=== PATIENT | female | born 1945 | race Caucasian/White ===

== ENCOUNTER 2017-08-25 13:25 | Emergency (ER) | payer OTHER ==
[~2017-08-25] VITALS: Ht 167.6 cm; Wt 77.0 kg
[~2017-08-25 13:25] MED LIST: CLON.1 PO; DONE10TA14; FENO160T2 PO; HYDR200T42 PO; IRON325T2 PO; LAMO100 PO; LEVO50TA51 PO; LORA2TAB PO; MECL25; PIOG30TA4 PO; PRAV20 PO; PRIS100T PO; PROT40TA PO; RIVA1.5
[2017-08-25 13:44] VITALS: BP 169/88; PULSE 78; RESP 18; TEMP 97.9; O2SAT 97
[2017-08-25] MEDS ORDERED: ACETAMINOPHEN/HYDROcodone 325 MG/10 MG TAB PO ONE (14:15)
[2017-08-25] MEDS ORDERED: HYDR200T3 PO (14:16)
[2017-08-25] MEDS ORDERED: MECL-62 PO (14:16)
[2017-08-25] MEDS ORDERED: PRAV20TA2 PO (14:16)
[2017-08-25] MEDS ORDERED: LORA2TAB7 PO (14:16)
[2017-08-25] MEDS ORDERED: HYDR-3583 PO (14:16)
[2017-08-25] MEDS ORDERED: PANT40TA3 PO (14:16)
[2017-08-25] MEDS ORDERED: LAMO5CHW CHEW (14:16)
[2017-08-25] MEDS ORDERED: CLON0.3T PO (14:16)
[2017-08-25] MEDS ORDERED: INSU100V2 SQ (14:16)
[2017-08-25] MEDS ORDERED: HYDR-3799 PO (14:16)
[2017-08-25] MEDS ORDERED: FENO160T PO (14:16)
[2017-08-25] MEDS ORDERED: GABA100C4 PO (14:16)
[2017-08-25] MEDS ORDERED: PIOG15TA5 PO (14:16)
[2017-08-25] MEDS ORDERED: REST0.05 EACH EYE (14:16)
[2017-08-25] MEDS ORDERED: SUCR1TAB PO (14:16)
[2017-08-25] MEDS ORDERED: LEVO75TA3 PO (14:16)
--- NOTE | 2017-08-25 14:20 | PD ---
HPI Chief Complaint: Fall Time Seen by Provider: 13:57 Travel History International Travel<30 days: No Contact w/Intl Traveler<30days: No Traveled to known affect area: No History of Present Illness HPI 72-year-old female presents to the emergency department via EMS for evaluation after she tripped and fell on Sunday, 3 days ago. Patient states she was helping an elderly man in his house when she tripped over a piece of wood falling on her right side. Patient reports that she hit her head is unsure if she had LOC. She reports neck pain, right shoulder pain, right hip pain, low back pain, right ankle pain. Patient denies being on anticoagulants. She takes hydrocodone 10/325 mg for chronic pain. She has not taken this today. Patient states she is able to ambulate with her walker. No abdominal pain. No chest pain. Current pain is 8/10, without radiation, aching. Exacerbating factors movement. No alleviating factors. Moderate severity. Patient has abrasion to the right lateral ankle. She does not believe her tetanus immunization is up-to-date [facility] Past Medical History Asthma: No Anxiety: Yes Depression: No Cardiovascular Problems: Yes High Cholesterol: Yes COPD: Yes Dementia: Yes Diabetes: Yes Patient Takes Glucophage: No Diminished Hearing: No Endocrine: Yes (low thyroid) GERD: Yes Glaucoma: No Hepatitis: No Hiatal Hernia: No Hypertension: Yes Immune Disorder: Yes (SJOGREN'S SYNDROME ) Medical other: Yes (Vertigo) Neurologic: Yes (neuropathy) Psychiatric: Yes (Bipolar) Reproductive: No Respiratory: Yes (COPD) Thyroid Disease: Yes (BIOPSIES ) Triglycerides - High: Yes Influenza Vaccination: Yes ?: Not Menopausal: Yes Past Surgical History Abdominal Surgery: Yes (EXP LAP COLON RESECTION 2003, rock, appy.) Appendectomy: Yes Body Medical Devices: "RIGHT SHOULDER REPLACMENT"? "NOT SURE" , "MAYBE A SCREW IN MY KNEE" Cholecystectomy: Yes Gynecologic Surgery: Yes (HYSTERECTOMY) Hysterectomy: Yes Joint Replacement: Yes (R knee) Pacemaker: No Other Surgery: Yes Social History Alcohol Use: No Tobacco Use: No Substance Use: No Allergies-Medications (Allergen,Severity, Reaction): Coded Allergies: Sulfa (Sulfonamide Antibiotics) (Unverified Allergy, Severe, TONGUE SWELLS , 08/25/17) chlorpromazine (Unverified Allergy, Severe, ?HEART PROBLEM VS DISORIENTED , 08/25/17) morphine (Unverified Allergy, Severe, ONLY ORAL- RASH WITH ORAL MED- STATES CAN TAKE IV, 08/25/17) phenobarbital (Unverified Allergy, Severe, Rash, 08/25/17) venlafaxine (Unverified Allergy, Severe, 08/25/17) duloxetine (Unverified Allergy, Intermediate, UNKNOWN, 08/25/17) blue dye (Unverified Allergy, Unknown, UNKNOWN, 08/25/17) citalopram (Unverified Allergy, Unknown, 08/25/17) lisinopril (Unverified Allergy, Unknown, 08/25/17) niacin (Unverified Allergy, Unknown, 08/25/17) Reported Meds & Prescriptions Reported Meds & Active Scripts Active Reported Humulin R Inj (Insulin Human Regular) 1,000 Unit/10 Ml Vial 10 Units SQ ONCE Hydrocodone-Acetaminophen 10-325 mg Tab 1 Tab PO Q4H PRN Hydroxychloroquine (Hydroxychloroquine Sulfate) 200 Mg Tab 200 Mg PO BID Takw with food Lamotrigine 5 Mg Chew 10 Mg CHEW BID Fenofibrate 160 Mg Tab 160 Mg PO DAILY Gabapentin 100 Mg Cap 100 Mg PO HS Hydralazine HCl 25 Mg Tablet 50 Mg PO TID Pantoprazole (Pantoprazole Sodium) 40 Mg Tab 40 Mg PO DAILY Meclizine (Meclizine HCl) 25 Mg Tab 25 Mg PO DIRECTED PRN Lorazepam 2 Mg Tab 2 Mg PO Q6H PRN Levothyroxine (Levothyroxine Sodium) 75 Mcg Tab 75 Mcg PO DAILY Pioglitazone (Pioglitazone HCl) 15 Mg Tab 15 Mg PO DAILY Sucralfate 1 Gram Tab 1 Gm PO QID on empty stomach Pravastatin 20 Mg Tab 20 Mg PO DAILY Restasis Opth (Cyclosporine Opth) 0.05% Emul 1 Drop EACH EYE BID Clonidine (Clonidine HCl) 0.3 Mg Tab 0.3 Mg PO TID Review of Systems Except as stated in HPI: all other systems reviewed are Neg Physical Exam Narrative GENERAL: Well-nourished, well-developed elderly female patient, afebrile SKIN: Focused skin assessment warm/dry. Patient has abrasion to the right lateral ankle. No lacerations. HEAD: Normocephalic. Atraumatic ENT: Mucosa pink and moist. No erythema or exudates. No uvular edema. No uvular , palatal, or tonsillar deviation. Airway patent. Nasal turbinates appear normal without nasal blood, purulent drainage or septal hematoma. Bilateral tympanic membranes clear without erythema or perforation. EYES: No scleral icterus. No injection or drainage. NECK: Supple, trachea midline. No JVD or lymphadenopathy. CARDIOVASCULAR: Regular rate and rhythm without murmurs, gallops, or rubs. RESPIRATORY: Breath sounds equal bilaterally. No accessory muscle use. Lung sounds are clear to auscultation. GASTROINTESTINAL: Abdomen soft, non-tender, nondistended. MUSCULOSKELETAL: No cyanosis, or edema. Patient has tenderness over right shoulder, right lateral hip, right lateral ankle. BACK: No obvious deformity. No CVA tenderness. Patient has tenderness to palpation or midline cervical and lumbar spine. Data Data Last Documented VS Vital Signs Date Time Temp Pulse Resp B/P (MAP) Pulse Ox O2 Delivery O2 Flow Rate FiO2 08/25/17 15:30 18 08/25/17 13:52 Room Air 08/25/17 13:44 97.9 78 169/88 (115) [address] Brain W/O Iv Contrast(Rout) (08/25/17 ) Ct Cerv Spine W/O Contrast (08/25/17 ) Shoulder, Complete (>2vws) (08/25/17 ) Hip, Uni(Ap&Lat) W Ap Pelvis (08/25/17 ) Spine, Lumbar - Ltd (Ap & Lat) (08/25/17 ) Femur (Ap & Lat/2vws) (08/25/17 ) Ankle, Complete ([id number]) (08/25/17 ) Acetamin-Hydrocod 325-10 Mg ([place] 10-32 (08/25/17 14:15) Tetanus/Diphtheria Tox Adult (Tetanus/Di (08/25/17 14:30) Splint Or Brace Apply/Monitor (08/25/17 17:47) MDM Medical Decision Making Medical Screen Exam Complete: Yes Emergency Medical Condition: Yes Medical Record Reviewed: Yes Interpretation(s) CT brain CONCLUSION: 1. No acute intracranial abnormality identified. CT cervical spine CONCLUSION: 1. No evidence of acute fracture or traumatic listhesis. 2. Degenerative disc disease with spondylosis and facet arthropathy. 3. No evidence of soft tissue injury. x-ray right shoulder CONCLUSION: Chronic change at the acromioclavicular joint and acromion region. An acute bony abnormality is not seen. X-ray right hip with pelvis CONCLUSION: Mild arthropathy; No evidence of acute fracture or dislocation. X-ray right femur CONCLUSION: 1. Status post total right knee arthroplasty. No evidence of acute fracture or loosening. 2. Intact right femur and hip. X-ray right ankle CONCLUSION: 1. Soft tissue swelling is noted along the anterior margin of the ankle with questionable nondisplaced avulsion fracture along the anterior margin of the distal tibia 2. Ankle mortise is well-maintained. X-ray lumbar spine - CONCLUSION: 1. Slight degenerative listhesis at L4-5 secondary to facet arthropathy. 2. Degenerative disc disease and facet arthropathy as described. 3. No acute bony abnormality. Differential Diagnosis Close head injury versus intracranial hemorrhage versus contusion versus fracture versus sprain Narrative Course 72-year-old female presents to the emergency department via EMS for evaluation after a trip and fall on Sunday, [address] of the brain and cervical spine are ordered and pending. X-ray of the right shoulder, lumbar spine, right hip with pelvis, right femur, right ankle are ordered and pending. Patient is given her dose of her chronic pain medication, [place] 10/325 mg for pain. X-ray of the right shoulder shows no acute bony abnormality. X-ray of the lumbar spine shows no acute bony abnormality. X-ray of the right hip with pelvis shows no evidence of acute fracture or dislocation. X-ray of the right femur shows intact right femur and hip. X-ray of the right ankle show soft tissue swelling with questionable nondisplaced avulsion fracture involving the anterior margin of the distal tibia. CT of the brain shows no acute intracranial abnormality. Ct of the cervical spine shows no evidence of acute fracture or traumatic listhesis. Hendrickson splint is placed to right ankle. Patient states she has a walker and wheelchair that she will use at home. She is instructed to follow-up with an orthopedist. She is return here for any acute worsening of symptoms. Patient is already prescribed [place] 10/325 mg. She is to continue this as needed for pain. Diagnosis Primary Impression: Closed right ankle fracture Qualified Codes: S82.891A - Other fracture of right lower leg, initial encounter for closed fracture Additional Impression: Closed head injury Qualified Codes: S09.90XA - Unspecified injury of head, initial encounter Referrals: Blayne Louise MD call for appointment Patient Instructions: Ankle Fracture (ED), General Instructions, Head Injury ( ED) Additional Instructions: Wear splint. Use your walker or wheelchair at home. Continue your already prescribed pain medication as needed. Follow-up with an orthopedist. Dr. Louise is her orthopedist registration representative today. Return to the emergency department for any acute worsening of symptoms. Med/Other Pt SpecificInfo: No Change to Meds Disposition: 01 DISCHARGE HOME Condition: Stable Nathalia Rachel BLESSING Aug 25, 2017 14:20
[2017-08-25] MEDS ORDERED: TETANUS/DIPHTHERIA TOXOID ADULT 0.5 ML VIAL IM ONE (14:30)
[2017-08-25 15:30] VITALS: RESP 18
--- NOTE | 2017-08-25 16:29 | RADRPT ---
EXAM DATE/TIME: 08/25/2017 15:33 [facility] COMPARISON: No previous studies available for comparison. INDICATIONS : Right ankle pain. Patient fell 4 days ago. MEDICAL HISTORY : Hypertension. Hypercholesterolemia. Gastroesophageal reflux disease. Diabetes. COPD. Dementia. Sj ogren's syndrome. SURGICAL HISTORY : Appendectomy. Cholecystectomy. Hysterectomy. Colon resection. Right knee replacement. ENCOUNTER: Initial ACUITY: 4 - 6 days PAIN SCORE: 5/10 LOCATION: Right lateral ankle. FINDINGS: Three view exam was performed of the right ankle. The bony structures are in normal alignment. Mild soft tissue swelling is seen along the anterior margin of the tibiotalar joint. There is a questiona ble nondisplaced fracture along the anterior inferior margin of the tibia. The ankle mortise is intac t. No radiopaque foreign bodies are seen. Bony mineralization is normal. CONCLUSION: 1. Soft tissue swelling is noted along the anterior margin of the ankle with questionable nondisplace d avulsion fracture along the anterior margin of the distal tibia 2. Ankle mortise is well-maintained. Jose Ramos MD on August 25, 2017 at 16:25 Board Certified Radiologist. This report was verified electronically.
--- NOTE | 2017-08-25 16:30 | RADRPT ---
EXAM DATE/TIME: 08/25/2017 15:33 [facility] COMPARISON: No previous studies available for comparison. INDICATIONS : Right leg pain. Patient fell 4 days ago. MEDICAL HISTORY : Hypertension. Hypercholesterolemia. Gastroesophageal reflux disease. Diabetes. COPD. Dementia. Sj ogren's syndrome. SURGICAL HISTORY : Appendectomy. Cholecystectomy. Hysterectomy. Colon resection. Right knee total replacement. ENCOUNTER: Initial ACUITY: 4 - 6 days PAIN SCORE: 5/10 LOCATION: Right femur. FINDINGS: Two view examination of the right femur demonstrates no evidence of fracture or dislocation. A total right knee replacement is noted. Bony mineralization is normal. The soft tissue structures are intact. CONCLUSION: 1. Status post total right knee arthroplasty. No evidence of acute fracture or loosening. 2. Intact right femur and hip. Jose Ramos MD on August 25, 2017 at 16:27 Board Certified Radiologist. This report was verified electronically.
--- NOTE | 2017-08-25 16:32 | RADRPT ---
EXAM DATE/TIME: 08/25/2017 15:33 [facility] COMPARISON: No previous studies available for comparison. INDICATIONS : Lower back pain. Patient fell 4 days ago. MEDICAL HISTORY : Hypertension. Hypercholesterolemia. Gastroesophageal reflux disease. Diabetes. COPD. Dementia. Sj ogren's syndrome. SURGICAL HISTORY : Appendectomy. Cholecystectomy. Hysterectomy. Colon resection. Right knee total replacement. ENCOUNTER: Initial ACUITY: 4 - 6 days PAIN SCORE: 5/10 LOCATION: Lumbar. FINDINGS: Two view examination was performed. There are five non-rib bearing vertebral bodies. Mild anterolis thesis is noted of L4 and L5. There is significant facet arthropathy at L3-4, L4-5 and L5-S1. Mild de generative disc disease and spondylosis is noted at L3-4 and L4-5. The disc spaces are otherwise well maintained. The pedicles are intact. Bony mineralization is normal. No fracture is identified. CONCLUSION: 1. Slight degenerative listhesis at L4-5 secondary to facet arthropathy. 2. Degenerative disc disease and facet arthropathy as described. 3. No acute bony abnormality. Jose Ramos MD on August 25, 2017 at 16:28 Board Certified Radiologist. This report was verified electronically.
--- NOTE | 2017-08-25 16:33 | RADRPT ---
EXAM DATE/TIME: 08/25/2017 15:33 [facility] COMPARISON: No previous studies available for comparison. INDICATIONS : Right hip pain. Patient fell 4 days ago. MEDICAL HISTORY : Hypertension. Hypercholesterolemia. Gastroesophageal reflux disease. Diabetes. COPD. Dementia. Sj ogren's syndrome. SURGICAL HISTORY : Appendectomy. Cholecystectomy. Hysterectomy. Colon resection. Right knee total replacement. ENCOUNTER: Initial ACUITY: 4 - 6 days PAIN SCORE: 5/10 LOCATION: Right posterior hip. FINDINGS: Examination of the right hip was performed with AP Pelvis. The primary and secondary trabecular ad herminia of the femoral neck is intact. Marginal spurring is noted along the acetabular rim.. The acetabu lum is otherwise grossly intact. CONCLUSION: Mild arthropathy. No evidence of acute fracture or dislocation. Jose Ramos MD on August 25, 2017 at 16:30 Board Certified Radiologist. This report was verified electronically.
--- NOTE | 2017-08-25 17:06 | RADRPT ---
EXAM DATE/TIME: 08/25/2017 16:06 [facility] COMPARISON: No previous studies available for comparison. INDICATIONS : Tripped fell hitting right side. RADIATION DOSE: 65.22 CTDIvol (mGy) MEDICAL HISTORY : Dementia. Hypertension. Chronic obstructive pulmonary disease.Hyperlipedema, bipolar, neuropathy SURGICAL HISTORY : Cholecystectomy. Knee, shoulder ENCOUNTER: Initial ACUITY: 3 days PAIN SCALE: 8/10 LOCATION: Right cranial TECHNIQUE: Multiple contiguous axial images were obtained of the head. Using automated exposure control and adj ustment of the mA and/or kV according to patient size, radiation dose was kept as low as reasonably a chievable to obtain optimal diagnostic quality images. DICOM format image data is available electro nically for review and comparison. FINDINGS: CEREBRUM: The ventricles are normal for age. No evidence of midline shift, mass lesion, hemorrhage or acute in farction. No extra-axial fluid collections are seen. POSTERIOR FOSSA: The cerebellum and brainstem are intact. The 4th ventricle is midline. The cerebellopontine angle i s unremarkable. EXTRACRANIAL: The visualized portion of the orbits is intact. SKULL: The calvaria is intact. No evidence of skull fracture. CONCLUSION: 1. No acute intracranial abnormality identified. Anuj Kent MD on August 25, 2017 at 17:02 Board Certified Radiologist. This report was verified electronically.
--- NOTE | 2017-08-25 17:30 | RADRPT ---
EXAM DATE/TIME: 08/25/2017 15:33 [facility] COMPARISON: No previous studies available for comparison. INDICATIONS : Right shoulder pain. Patient fell 4 days ago. MEDICAL HISTORY : Hypertension. Hypercholesterolemia. Gastroesophageal reflux disease. Diabetes. COPD. Dementia. Sj ogren's syndrome. SURGICAL HISTORY : Hysterectomy. Appendectomy. Cholecystectomy. Colon resection. Right knee total replacement. ENCOUNTER: Initial ACUITY: 4 - 6 days PAIN SCORE: 5/10 LOCATION: Right shoulder. FINDINGS: No acute fracture is seen. The glenohumeral and coracoclavicular joints are normally aligned. There i s hypertrophic change at the acromioclavicular joint and at the lateral acromion. The bones appear os teopenic. CONCLUSION: Chronic change at the acromioclavicular joint and acromion region. An acute bony abnormality is not s een. Jayce Godinez MD on August 25, 2017 at 17:26 Board Certified Radiologist. This report was verified electronically.
--- NOTE | 2017-08-25 18:07 | RADRPT ---
EXAM DATE/TIME: 08/25/2017 16:06 [facility] COMPARISON: No previous studies available for comparison. INDICATIONS : Tripped and fell huring her right side. RADIATION DOSE: 26.47 CTDIvol (mGy) MEDICAL HISTORY : Dementia. Hypertension. Chronic obstructive pulmonary disease.Bipolar, hyperlip edema SURGICAL HISTORY : Cholecystectomy. Knee and shoulder ENCOUNTER: Initial ACUITY: 3 days PAIN SCALE: 8/10 LOCATION: Right neck TECHNIQUE: Volumetric scanning of the cervical spine was performed. Multiplanar reconstructions i n the sagittal, coronal and oblique axial planes were performed. Using automated exposure control a nd adjustment of the mA and/or kV according to patient size, radiation dose was kept as low as reason ably achievable to obtain optimal diagnostic quality images. DICOM format image data is available e lectronically for review and comparison. FINDINGS: Alignment: Intact without evidence of traumatic listhesis Osseous structures and facet joints: No evidence of acute fracture. Moderate facet arthropathy especially along the left side of the spine . There is significant joint space narrowing with marginal spurring at C2-3, C3-4, C4-5 and C5-6. Pos terior elements are otherwise intact. Intervertebral disc spaces: [id number] degenerative disc disease at C5-6 and C6-7 with disc space narrowing and marginal sp ondylosis. No evidence of acute disc herniation Neurologic structures: No evidence of acute spinal cord injury CONCLUSION: 1. No evidence of acute fracture or traumatic listhesis. 2. Degenerative disc disease with spondylosis and facet arthropathy. 3. No evidence of soft tissue injury. Jose Ramos MD on August 25, 2017 at 18:01 Board Certified Radiologist. This report was verified electronically.
== END 2017-08-25 18:27 | disposition home or self-care (01) ==
LOC: PHEFT 13:25
DX: S82.891A Other fracture of right lower leg, initial encounter for closed fracture (principal); S09.90XA Unspecified injury of head, initial encounter; W01.0XXA Fall on same level from slipping, tripping and stumbling without subsequent striking against object, initial encounter; Y93.F9 Activity, other caregiving; Y92.009 Unspecified place in unspecified non-institutional (private) residence as the place of occurrence of the external cause; E78.00 Pure hypercholesterolemia, unspecified; E11.9 Type 2 diabetes mellitus without complications; J44.9 Chronic obstructive pulmonary disease, unspecified; I10 Essential (primary) hypertension; M35.00 Sjogren syndrome, unspecified; Z23 Encounter for immunization; Z79.4 Long term (current) use of insulin
CPT/HCPCS: 29515; 70450; 72100; 72125; 73030; 73502; 73552; 73610; 90471; 90714